=== PATIENT | female | born 1980 | race Two or more races ===

== ENCOUNTER 2019-10-24 16:07 | Emergency (ER) | payer MEDICAID ==
[~2019-10-24] VITALS: Ht 152.4 cm; Wt 86.6 kg
[2019-10-24 16:36] LABS: Urine Bacteria NONE SEEN /hpf (None Seen); Urine Blood Negative /uL (Negative); Urine Mucus FEW (None Seen); Urine Specific Gravity 1.029 (1.001-1.035); Urine WBC <1 /hpf (0 - 5)
[2019-10-24 16:48] LABS: Basophils # (auto) 0 uL; Basophils % (auto) 0.5 % (0.0-2.0); Eosinophils # (auto) 0 uL; Eosinophils % (auto) 0.8 % (0.0-7.0); Hematocrit 43.1 % (36.0-46.0); Hemoglobin 14.9 g/dL (12.2-16.2); Lymphocytes # (auto) 1.4 uL; Lymphocytes % (auto) 23.8 % (10.0-50.0); Mean Corpuscular Hemoglobin 28.9 pg (28.0-32.0); Mean Corpuscular Hgb Conc. 34.5 g/dL (32.0-36.0); Mean Corpuscular Volume 83.8 fL (80.0-100.0); Monocytes # (auto) 0.3 uL; Monocytes % (auto) 5.1 % (0.0-12.0); Neutrophils # (auto) 4.1 uL; Neutrophils % (auto) 69.8 % (37.0-80.0); Platelet Count (auto) 173 10^3/uL (140-450); Red Blood Cells 5.14 10^6/uL (4.0-5.20); Red Cell Distribution Width 13.9 % (11.8-14.3); White Blood Cell 5.9 10^3/uL (4.4-10.8)
[2019-10-24 17:06] LABS: Alanine Aminotransferase 128 U/L (13-56); Albumin 3.6 g/dL (3.4-5.0); Anion Gap 9 (5-15); Aspartate Aminotransferase 97 U/L (15-37); Blood Urea Nitrogen 13 mg/dL (7-18); Calcium 9.5 mg/dL (8.5-10.1); Carbon Dioxide 24 mmol/L (21-32); Chloride 104 mmol/L (98-107); GFR African American 130 mL/min; GFR Non-African American 107 mL/min; Glucose 219 mg/dL (74-106); Potassium 4.1 mmol/L (3.5-5.1); Sodium 137 mmol/L (136-145)
[2019-10-24 17:07] LABS: Alkaline Phosphatase 77 U/L (45-117); Bilirubin, Total 0.5 mg/dL (0.2-1.0)
[2019-10-24 18:26] VITALS: BP 127/79
[2019-10-24] MEDS ORDERED: SODIUM CHLORIDE 0.9% 500 ML IV ONE (19:00)
[2019-10-24] MEDS ORDERED: ONDANSETRON HCL 4 MG/2 ML VIAL IV ONE (19:00)
[2019-10-24] MEDS ORDERED: MORPHINE SULF INJ 2 MG/ML SYRINGE 1ML IV ONE (19:00)
== END 2019-10-24 19:46 | disposition home or self-care (01) ==
LOC: ER 16:07
DX: A08.4 Viral intestinal infection, unspecified (principal); K21.9 Gastro-esophageal reflux disease without esophagitis; K57.90 Diverticulosis of intestine, part unspecified, without perforation or abscess without bleeding; F17.210 Nicotine dependence, cigarettes, uncomplicated
CPT/HCPCS: 36415; 74176; 76705; 80053; 81001; 81025; 85025; 96361; 96374; 96375; 99284; J2270; J2405

== ENCOUNTER 2021-02-16 11:55 | Inpatient (IN) | payer MEDICAID ==
[~2021-02-16] VITALS: Ht 152.4 cm; Wt 80.8 kg
[2021-02-16] MEDS ORDERED: PANTOPRAZOLE 40 MG/10 ML VIAL INJ IV STA (12:05)
[2021-02-16] MEDS ORDERED: ONDANSETRON HCL 4 MG/2 ML VIAL IV ONE (12:15)
[2021-02-16] MEDS ORDERED: MORPHINE SULFATE 4 MG/ML SYR/VIAL IV ONE (12:15)
[2021-02-16] MEDS ORDERED: SODIUM CHLORIDE 0.9% 500 ML IVB ONE (12:15)
[2021-02-16 13:01] LABS: Basophils # (auto) 0 10 ^3/uL (0-0.2); Basophils % (auto) 0.2 % (0.0-2.0); Eosinophils # (auto) 0.1 10 ^3/uL (0-0.8); Eosinophils % (auto) 0.6 % (0.0-7.0); Hematocrit 40.6 % (36.0-46.0); Hemoglobin 13.8 g/dL (12.2-16.2); Lymphocytes # (auto) 1.2 10 ^3/uL (0.4-5.4); Lymphocytes % (auto) 13.1 % (10.0-50.0); Mean Corpuscular Hemoglobin 28.9 pg (28.0-32.0); Mean Corpuscular Hgb Conc. 33.9 g/dL (32.0-36.0); Mean Corpuscular Volume 85.4 fL (80.0-100.0); Monocytes # (auto) 0.4 10 ^3/uL (0-1.3); Monocytes % (auto) 3.9 % (0.0-12.0); Neutrophils # (auto) 7.5 10 ^3/uL (1.6-8.6); Neutrophils % (auto) 82.2 % (37.0-80.0); Nucleated Red Blood Cells % 0.1 %; Platelet Count (auto) 184 10^3/uL (140-450); Red Blood Cells 4.75 10^6/uL (4.0-5.20); Red Cell Distribution Width 13.2 % (11.8-14.3); White Blood Cell 9.1 10^3/uL (4.4-10.8)
[2021-02-16 13:24] LABS: Potassium 4.2 mmol/L (3.5-5.1)
[2021-02-16 13:35] LABS: Albumin 3.4 g/dL (3.4-5.0); BUN/Creatinine Ratio 21.3; Bilirubin, Total 0.4 mg/dL (0.2-1.0); Calcium 8.6 mg/dL (8.5-10.1); Total Protein 7.2 g/dL (6.4-8.2)
[2021-02-16] MEDS ORDERED: DEXTROSE (50%) 50ML SYRG IV PRN (14:45)
[2021-02-16] MEDS ORDERED: NITROGLYCERIN 0.4 MG SL TAB SL PRN (14:45)
[2021-02-16] MEDS ORDERED: HYDROmorphone HCL 2 MG/ML VL IV PRN (14:45)
[2021-02-16] MEDS ORDERED: MORPHINE SULF INJ 2 MG/ML SYRINGE 1ML IV PRN (14:45)
[2021-02-16] MEDS ORDERED: ONDANSETRON HCL 4 MG/2 ML VIAL IV PRN (14:45)
[2021-02-16] MEDS: HYDROmorphone HCL 2 MG/ML VL IV PRN ×2 (15:15→23:52)
[2021-02-16] MEDS: SODIUM CHLORIDE 0.9% 1,000 ML IV SCH (15:17)
[2021-02-16] MEDS: ACCU-CHEK COMFORT CURVE STRIP VI SCH ×2 (17:05→23:05)
[2021-02-16] MEDS: InsuLIN REG 1unit/0.01ml Soln (100units/ml) SC SCH ×2 (17:07→23:58)
[2021-02-16 22:00] VITALS: BP 110/68
[2021-02-16] MEDS: PANTOPRAZOLE 40 MG TAB PO SCH (23:05)
[2021-02-17] MEDS: SODIUM CHLORIDE 0.9% 1,000 ML IV SCH ×2 (01:34→12:20)
[2021-02-17 05:00] VITALS: BP 85/55
[2021-02-17 06:08] VITALS: BP 99/66
[2021-02-17] MEDS: ACCU-CHEK COMFORT CURVE STRIP VI SCH ×3 (06:55→17:00)
[2021-02-17] MEDS: InsuLIN REG 1unit/0.01ml Soln (100units/ml) SC SCH ×3 (06:56→17:00)
[2021-02-17 06:59] LABS: INR 0.99 (0.9-1.15)
[2021-02-17 07:08] LABS: Urine Bacteria NONE SEEN /hpf (None Seen); Urine Blood Negative /uL (Negative); Urine Mucus FEW (None Seen); Urine Specific Gravity 1.014 (1.001-1.035); Urine WBC 5 /hpf (0 - 5)
[2021-02-17] MEDS ORDERED: LIDOCAINE VISCOUS 2% 15ML UD ONE (08:37)
[2021-02-17] MEDS ORDERED: diphenhdrAMINE HCL 50 MG/1 ML VL ONE (08:38)
[2021-02-17 09:00] VITALS: BP 113/66
[2021-02-17] MEDS: PANTOPRAZOLE 40 MG TAB PO SCH (10:00)
[2021-02-17] MEDS: MIDAZOLAM HCL 5 MG/ML-1ML VIAL ONE ×2 (11:45→11:48)
[2021-02-17] MEDS: fentaNYL CITRATE 100 MCG/2 ML VL ONE ×2 (11:45→11:48)
[2021-02-17 13:00] VITALS: BP 96/71
[2021-02-17] MEDS ORDERED: PANT40T PO ×2 (14:17→14:32)
[2021-02-17] MEDS ORDERED: SUCR1TAB22 PO ×2 (14:17→14:32)
[2021-02-17] MEDS ORDERED: METF-372 PO (14:24)
[2021-02-17 17:00] VITALS: BP 112/73
[2021-02-17] MEDS ORDERED: SUCRALFATE 1 GM/10 ML ORAL SUSP PO SCH (17:00)
== END 2021-02-17 18:55 | disposition home or self-care (01) | DRG 241 ==
LOC: ER 11:55 → OVERFLOW 11:56 → WEST WING 17:16
PROVIDERS: ADMIT Nurse Practitioner Acute Care; ATTEND Internal Medicine
PROC: 0DB68ZX Excision of Stomach, Via Natural or Artificial Opening Endoscopic, Diagnostic (ICD-10-PCS; principal; 2021-02-17 11:49)
DX: K25.9 Gastric ulcer, unspecified as acute or chronic, without hemorrhage or perforation (principal); K29.80 Duodenitis without bleeding; K29.70 Gastritis, unspecified, without bleeding; E11.9 Type 2 diabetes mellitus without complications; E66.9 Obesity, unspecified; Z72.0 Tobacco use; Z20.822 Contact with and (suspected) exposure to COVID-19; K76.0 Fatty (change of) liver, not elsewhere classified; Z79.84 Long term (current) use of oral hypoglycemic drugs; Z83.3 Family history of diabetes mellitus; Z91.19 Patient's noncompliance with other medical treatment and regimen; Z68.34 Body mass index [BMI] 34.0-34.9, adult
CPT/HCPCS: 36415; 74176; 76705; 78226; 80053; 81001; 81025; 82962; 83036; 83690; 84443; 85025; 85610; 85730; 87426; 96361; 96372; 96374; 96375; C9113; G0378; J1815; J2250; J2405

== ENCOUNTER 2021-05-28 15:21 | Emergency (ER) | payer MEDICAID ==
[~2021-05-28] VITALS: Ht 152.4 cm; Wt 81.6 kg
[~2021-05-28 15:21] MED LIST: METF-372 PO; PANT40T PO; SUCR1TAB22 PO
[2021-05-28 16:53] VITALS: BP 134/69
== END 2021-05-28 17:17 | disposition home or self-care (01) ==
LOC: ER 15:21
DX: G44.209 Tension-type headache, unspecified, not intractable (principal); R11.0 Nausea; E11.9 Type 2 diabetes mellitus without complications; Z87.891 Personal history of nicotine dependence
CPT/HCPCS: 70450

== ENCOUNTER 2021-10-11 10:31 | Emergency (ER) | payer MEDICAID ==
[~2021-10-11] VITALS: Ht 152.4 cm; Wt 80.3 kg
[2021-10-11 10:33] VITALS: BP 117/79
[2021-10-11 10:58] LABS: Urine Bacteria NONE SEEN /hpf (None Seen); Urine Blood Negative /uL (Negative); Urine Hyaline Cast FEW /lpf (0 - 2); Urine Mucus FEW (None Seen); Urine Specific Gravity 1.035 (1.001-1.035); Urine WBC 49 /hpf (0 - 5)
== END 2021-10-11 15:12 | disposition left against medical advice (07) ==
LOC: ER 10:31
DX: R10.2 Pelvic and perineal pain (principal); Z53.21 Procedure and treatment not carried out due to patient leaving prior to being seen by health care provider
CPT/HCPCS: 81001; 81025

== ENCOUNTER 2022-09-03 06:42 | Emergency (ER) | payer MEDICAID ==
[~2022-09-03] VITALS: Ht 152.4 cm; Wt 81.3 kg
[2022-09-03 07:37] VITALS: BP 122/79
[2022-09-03 07:44] LABS: Basophils # (auto) 0 10 ^3/uL (0-0.2); Eosinophils # (auto) 0.1 10 ^3/uL (0-0.8); Mean Corpuscular Volume 81.4 fL (80.0-100.0); Monocytes # (auto) 0.3 10 ^3/uL (0-1.3); Monocytes % (auto) 4.9 % (0.0-12.0); Neutrophils # (auto) 4.2 10 ^3/uL (1.6-8.6); White Blood Cell 6.6 10^3/uL (4.4-10.8)
[2022-09-03 07:45] LABS: Basophils % (auto) 0.4 % (0.0-2.0); Eosinophils % (auto) 1.8 % (0.0-7.0); Hematocrit 37.3 % (36.0-46.0); Hemoglobin 12.4 g/dL (12.2-16.2); Lymphocytes % (auto) 29.9 % (10.0-50.0); Mean Corpuscular Hgb Conc. 33.2 g/dL (32.0-36.0); Nucleated Red Blood Cells % 0.1 %; Red Blood Cells 4.58 10^6/uL (4.0-5.20); Red Cell Distribution Width 13.6 % (11.8-14.3)
[2022-09-03] MEDS ORDERED: KETOROLAC TROMETH 30 MG/ML 1ML VIAL IV ONE (07:45)
[2022-09-03 08:13] LABS: Albumin 3.3 g/dL (3.4-5.0); Calcium 8.4 mg/dL (8.5-10.1); Potassium 3.6 mmol/L (3.5-5.1)
[2022-09-03 08:16] LABS: BUN/Creatinine Ratio 18.6; Bilirubin, Total 0.2 mg/dL (0.2-1.0); Total Protein 6.9 g/dL (6.4-8.2)
[2022-09-03 08:19] LABS: Urine Bacteria NONE SEEN /hpf (None Seen); Urine Blood Negative /uL (Negative); Urine Specific Gravity 1.007 (1.001-1.035); Urine WBC 1 /hpf (0 - 5)
[2022-09-03] MEDS ORDERED: NITR-87 PO (11:56)
== END 2022-09-03 12:30 | disposition home or self-care (01) ==
LOC: ER 06:42
DX: N83.202 Unspecified ovarian cyst, left side (principal); E11.9 Type 2 diabetes mellitus without complications; F17.210 Nicotine dependence, cigarettes, uncomplicated; Z79.899 Other long term (current) drug therapy
CPT/HCPCS: 36415; 71045; 74176; 76830; 76856; 80053; 81001; 83690; 85025; 96374; 99285; J1885

== ENCOUNTER 2023-09-23 07:59 | Emergency (ER) | payer MEDICAID ==
[~2023-09-23] VITALS: Ht 152.4 cm; Wt 77.9 kg
[~2023-09-23 07:59] MED LIST changes: +NITR-87 PO
[2023-09-23 08:08] VITALS: BP 123/80; PULSE 93; RESP 18; TEMP 97.6; O2SAT 98
[2023-09-23 08:33] LABS: Basophils # (auto) 0 10 ^3/uL (0-0.2); Basophils % (auto) 0.5 % (0.0-2.0); Eosinophils # (auto) 0.1 10 ^3/uL (0-0.8); Eosinophils % (auto) 1.2 % (0.0-7.0); Hematocrit 43.6 % (36.0-46.0); Hemoglobin 14.8 g/dL (12.2-16.2); Lymphocytes # (auto) 2.5 10 ^3/uL (0.4-5.4); Lymphocytes % (auto) 28.6 % (10.0-50.0); Mean Corpuscular Hemoglobin 28.6 pg (28.0-32.0); Mean Corpuscular Volume 84.1 fL (80.0-100.0); Monocytes # (auto) 0.4 10 ^3/uL (0-1.3); Monocytes % (auto) 4.3 % (0.0-12.0); Neutrophils # (auto) 5.8 10 ^3/uL (1.6-8.6); Neutrophils % (auto) 65.4 % (37.0-80.0); Nucleated Red Blood Cells % 0.1 %; Red Blood Cells 5.18 10^6/uL (4.0-5.20); Red Cell Distribution Width 12.8 % (11.8-14.3); White Blood Cell 8.8 10^3/uL (4.4-10.8)
[2023-09-23 08:47] LABS: Urine Bacteria NONE SEEN /hpf (None Seen); Urine Blood Negative /uL (Negative); Urine Clarity Clear (Clear); Urine Color Yellow (Yellow); Urine Protein, UAD TRACE (Negative); Urine Urobilinogen Normal (Negative); Urine WBC 3 /hpf (0 - 5); Urine pH 6.5 (5.0-8.0)
[2023-09-23 09:05] LABS: Alanine Aminotransferase 35 U/L (7-40); Albumin 4.9 g/dL (3.2-4.8); Alkaline Phosphatase 90 U/L (46-116); Anion Gap 4 (5-15); Aspartate Aminotransferase 18 U/L (13-40); BUN/Creatinine Ratio 12.3 (10.0-20.0); Blood Urea Nitrogen 7 mg/dL (9-23); Calcium 9.7 mg/dL (8.7-10.4); Carbon Dioxide 24 mmol/L (20-30); Chloride 104 mmol/L (98-107); Glucose 290 mg/dL (74-106); Lipase 93 U/L (12-53); Potassium 3.7 mmol/L (3.5-5.1); Sodium 132 mmol/L (136-145)
[2023-09-23 09:06] LABS: Bilirubin, Total 0.4 mg/dL (0.2-1.0); Total Protein 7.9 g/dL (5.7-8.2)
[2023-09-23] MEDS ORDERED: ONDANSETRON ODT 4 MG TAB PO ONE (10:15)
[2023-09-23] MEDS ORDERED: KETOROLAC TROMETH 60MG/2ML VIAL IM ONE (10:15)
[2023-09-23] MEDS ORDERED: METO-281 PO (10:20)
[2023-09-23] MEDS ORDERED: TRAM50TA2 PO (10:20)
== END 2023-09-23 10:48 | disposition home or self-care (01) ==
LOC: ER 07:59
DX: K29.00 Acute gastritis without bleeding (principal); R74.8 Abnormal levels of other serum enzymes; R16.0 Hepatomegaly, not elsewhere classified; F41.9 Anxiety disorder, unspecified; E11.9 Type 2 diabetes mellitus without complications; F17.210 Nicotine dependence, cigarettes, uncomplicated; Z98.890 Other specified postprocedural states; Z79.899 Other long term (current) drug therapy
CPT/HCPCS: 36415; 76705; 80053; 81001; 81025; 83690; 85025; 96372; 99285; J1885; Q0162

== ENCOUNTER 2023-09-25 10:30 | Emergency (ER) | payer MEDICAID ==
[~2023-09-25] VITALS: Ht 152.4 cm; Wt 80.1 kg
[~2023-09-25 10:30] MED LIST changes: +METO-281 PO; +TRAM50TA2 PO
[2023-09-25] MEDS ORDERED: ONDANSETRON ODT 4 MG TAB PO ONE (11:00)
[2023-09-25] MEDS ORDERED: LIDOCAINE VISCOUS 2% 15ML UD PO ONE (11:00)
[2023-09-25] MEDS ORDERED: MAALOX PLUS or MAALOX 30 ML PO ONE (11:00)
[2023-09-25 11:17] LABS: Basophils # (auto) 0 10 ^3/uL (0-0.2); Basophils % (auto) 0.2 % (0.0-2.0); Eosinophils # (auto) 0.1 10 ^3/uL (0-0.8); Eosinophils % (auto) 1.6 % (0.0-7.0); Hematocrit 40.6 % (36.0-46.0); Hemoglobin 13.8 g/dL (12.2-16.2); Lymphocytes # (auto) 1.6 10 ^3/uL (0.4-5.4); Lymphocytes % (auto) 24.1 % (10.0-50.0); Mean Corpuscular Hemoglobin 28.9 pg (28.0-32.0); Mean Corpuscular Hgb Conc. 33.9 g/dL (32.0-36.0); Mean Corpuscular Volume 85.1 fL (80.0-100.0); Monocytes # (auto) 0.4 10 ^3/uL (0-1.3); Monocytes % (auto) 5.5 % (0.0-12.0); Neutrophils # (auto) 4.7 10 ^3/uL (1.6-8.6); Neutrophils % (auto) 68.6 % (37.0-80.0); Red Blood Cells 4.77 10^6/uL (4.0-5.20); Red Cell Distribution Width 12.9 % (11.8-14.3); White Blood Cell 6.8 10^3/uL (4.4-10.8)
[2023-09-25 11:45] LABS: Alanine Aminotransferase 30 U/L (7-40); Alkaline Phosphatase 73 U/L (46-116); Carbon Dioxide 28 mmol/L (20-30); Chloride 102 mmol/L (98-107)
[2023-09-25 11:46] LABS: Albumin 4.2 g/dL (3.2-4.8); Anion Gap 4 (5-15); Aspartate Aminotransferase 17 U/L (13-40); BUN/Creatinine Ratio 16.4 (10.0-20.0); Bilirubin, Total 0.5 mg/dL (0.2-1.0); Blood Urea Nitrogen 10 mg/dL (9-23); Glucose 332 mg/dL (74-106); Potassium 4.4 mmol/L (3.5-5.1); Sodium 134 mmol/L (136-145); Total Protein 6.7 g/dL (5.7-8.2)
[2023-09-25 11:57] LABS: Lipase 98 U/L (12-53)
[2023-09-25] MEDS ORDERED: DICY10CA PO (13:39)
[2023-09-25] MEDS ORDERED: PANT40TA2 PO (13:39)
[2023-09-25] MEDS ORDERED: ZOFR4T PO (13:39)
[2023-09-25 14:02] VITALS: BP 111/65; PULSE 75; RESP 18; TEMP 98; O2SAT 97
== END 2023-09-25 14:04 | disposition home or self-care (01) ==
LOC: ER 10:30
DX: E11.65 Type 2 diabetes mellitus with hyperglycemia (principal); F17.210 Nicotine dependence, cigarettes, uncomplicated
CPT/HCPCS: 36415; 71045; 74176; 80053; 82962; 83690; 84484; 85025; 99284; Q0162

== ENCOUNTER → 2023-11-30 03:43 | Emergency (ER) | payer MEDICAID ==
[~2023-11-30] VITALS: Ht 152.4 cm; Wt 79.6 kg
[~2023-11-30 03:43] MED LIST changes: +ACET500T58 PO; +ACETAMINOPHEN 325 MG TAB PO ONE; +AMOX875T4 PO; +DICY10CA PO; +PANT40TA2 PO; +ZOFR4T PO; +cefTRIAXone SOD 1,000 MG VL IM ONE
[2023-11-30 03:55] VITALS: BP 117/82; PULSE 97; RESP 16; O2SAT 98
== END | disposition home or self-care (01) ==
LOC: ER 03:43
DX: L03.012 Cellulitis of left finger (principal); E11.9 Type 2 diabetes mellitus without complications; F41.9 Anxiety disorder, unspecified
CPT/HCPCS: 73140; 96372; 99283; J0696

== ENCOUNTER 2024-07-25 13:40 | Inpatient (IN) | payer MEDICAID ==
[~2024-07-25] VITALS: Ht 152.4 cm; Wt 80.2 kg
[~2024-07-25 13:40] MED LIST changes: -ACETAMINOPHEN 325 MG TAB PO ONE; -SUCR1TAB22 PO; +SUCR1TAB31 PO; -cefTRIAXone SOD 1,000 MG VL IM ONE
[2024-07-25 14:30] LABS: Urine Bacteria None Seen /hpf (None Seen)
[2024-07-25 15:10] LABS: Urine Blood TRACE /uL (Negative); Urine Clarity Clear (Clear); Urine Color Light-Yellow (Yellow); Urine Protein, UAD Negative (Negative); Urine Specific Gravity 1.027 (1.001-1.035); Urine Urobilinogen Normal (Negative); Urine WBC 25 /hpf (0 - 5)
[2024-07-25 17:30] LABS: Basophils # (auto) 0.1 10 ^3/uL (0-0.2); Basophils % (auto) 0.4 % (0.0-2.0); Eosinophils # (auto) 0 10 ^3/uL (0-0.8); Eosinophils % (auto) 0.2 % (0.0-7.0); Hematocrit 42.6 % (36.0-46.0); Hemoglobin 14.7 g/dL (12.2-16.2); Lymphocytes # (auto) 0.7 10 ^3/uL (0.4-5.4); Lymphocytes % (auto) 4.2 % (10.0-50.0); Mean Corpuscular Hemoglobin 29.2 pg (28.0-32.0); Mean Corpuscular Hgb Conc. 34.4 g/dL (32.0-36.0); Mean Corpuscular Volume 84.9 fL (80.0-100.0); Monocytes # (auto) 0.6 10 ^3/uL (0-1.3); Monocytes % (auto) 3.5 % (0.0-12.0); Neutrophils # (auto) 15.1 10 ^3/uL (1.6-8.6); Neutrophils % (auto) 91.7 % (37.0-80.0); Platelet Count (auto) 162 10^3/uL (140-450); Red Blood Cells 5.02 10^6/uL (4.0-5.20); Red Cell Distribution Width 13.3 % (11.8-14.3); White Blood Cell 16.4 10^3/uL (4.4-10.8)
[2024-07-25 17:43] LABS: Alanine Aminotransferase 20 U/L (7-40); Albumin 4.5 g/dL (3.2-4.8); Alkaline Phosphatase 76 U/L (46-116); Anion Gap 6 (5-15); Aspartate Aminotransferase 15 U/L (13-40); BUN/Creatinine Ratio 13.6 (10.0-20.0); Blood Urea Nitrogen 9 mg/dL (9-23); Calcium 9.3 mg/dL (8.7-10.4); Carbon Dioxide 20 mmol/L (20-30); Chloride 105 mmol/L (98-107); Glucose 301 mg/dL (74-106); Lipase 61 U/L (12-53); Potassium 3.8 mmol/L (3.5-5.1); Sodium 131 mmol/L (136-145); Total Protein 7.4 g/dL (5.7-8.2)
[2024-07-25] MEDS: SODIUM CHLORIDE 0.9% 1,000 ML IVB ONE (20:21)
[2024-07-25] MEDS: PANTOPRAZOLE 40 MG/10 ML VIAL INJ IV ONE (20:21)
[2024-07-25] MEDS: ONDANSETRON HCL 4 MG/2 ML VIAL IV ONE (20:21)
[2024-07-25] MEDS: MORPHINE SULFATE 4 MG/ML SYR/VIAL IV ONE (20:23)
[2024-07-25] MEDS ORDERED: ONDANSETRON HCL 4 MG/2 ML VIAL IV PRN (21:30)
[2024-07-25] MEDS ORDERED: DEXTROSE (50%) 50ML SYRG IV PRN (21:30)
[2024-07-25] MEDS ORDERED: HYDROcodone-ACET 5/325MG TAB PO PRN (21:30)
[2024-07-25] MEDS ORDERED: HYDROmorphone HCL 2 MG/ML VL/or syr IV PRN (21:30)
[2024-07-25] MEDS ORDERED: DOCUSATE SOD 100 MG CAP PO PRN (21:30)
[2024-07-25] MEDS: cefTRIAXone 1GM/50ML D5W 50 ML IV SCH (21:51)
[2024-07-25] MEDS: SODIUM CHLOR 0.9% PF (SALINE LOCK) 10ML VIAL/SYR IV SCH (22:08)
[2024-07-25] MEDS: ACCU-CHEK COMFORT CURVE STRIP VI SCH (22:08)
[2024-07-25] MEDS: metroNIDAZOLE 500MG/100ML 100 ML IV SCH (22:13)
[2024-07-25] MEDS: LACTATED RINGER'S 1,000 ML IV ONE (22:14)
[2024-07-25] MEDS: InsuLIN REG 1unit/0.01ml Soln (100units/ml) SC SCH (22:24)
[2024-07-25] MEDS: SUCRALFATE 1 GM TAB PO SCH (22:30)
[2024-07-25 23:22] VITALS: O2SAT 96
[2024-07-26] VITALS (8 sets, daily range): BP systolic 102–148; BP diastolic 58–95; PULSE 80–107; RESP 16–20; TEMP 98.5–100; O2SAT 95–99
[2024-07-26] MEDS: ACETAMINOPHEN 325 MG TAB PO PRN (00:14)
[2024-07-26 04:58] LABS: Basophils # (auto) 0 10 ^3/uL (0-0.2); Basophils % (auto) 0.1 % (0.0-2.0); Eosinophils # (auto) 0 10 ^3/uL (0-0.8); Eosinophils % (auto) 0.1 % (0.0-7.0); Hematocrit 39.8 % (36.0-46.0); Hemoglobin 13.9 g/dL (12.2-16.2); Lymphocytes # (auto) 0.9 10 ^3/uL (0.4-5.4); Lymphocytes % (auto) 8.2 % (10.0-50.0); Mean Corpuscular Hemoglobin 29.8 pg (28.0-32.0); Mean Corpuscular Volume 85.2 fL (80.0-100.0); Monocytes # (auto) 0.5 10 ^3/uL (0-1.3); Monocytes % (auto) 4.6 % (0.0-12.0); Neutrophils # (auto) 9.3 10 ^3/uL (1.6-8.6); Platelet Count (auto) 152 10^3/uL (140-450); Red Blood Cells 4.67 10^6/uL (4.0-5.20); Red Cell Distribution Width 12.9 % (11.8-14.3); White Blood Cell 10.7 10^3/uL (4.4-10.8)
[2024-07-26 05:17] LABS: Alanine Aminotransferase 18 U/L (7-40); Albumin 4.3 g/dL (3.2-4.8); Alkaline Phosphatase 63 U/L (46-116); Anion Gap 6 (5-15); Aspartate Aminotransferase 12 U/L (13-40); BUN/Creatinine Ratio 14.3 (10.0-20.0); Bilirubin, Total 0.9 mg/dL (0.2-1.0); Blood Urea Nitrogen 8 mg/dL (9-23); Calcium 8.9 mg/dL (8.7-10.4); Carbon Dioxide 23 mmol/L (20-30); Chloride 105 mmol/L (98-107); Glucose 204 mg/dL (74-106); Potassium 3.5 mmol/L (3.5-5.1); Sodium 134 mmol/L (136-145); Total Protein 6.8 g/dL (5.7-8.2)
[2024-07-26] MEDS ORDERED: PANTOPRAZOLE 40 MG TAB PO SCH (10:00)
[2024-07-26] MEDS: ENOXAPARIN SOD 40 MG/0.4 ML SYRINGE SC SCH (11:09)
[2024-07-26] MEDS: SODIUM CHLORIDE 0.9% 1,000 ML IV SCH (12:45)
[2024-07-26] MEDS: PANTOPRAZOLE 40 MG/10 ML VIAL INJ IV SCH (14:30)
[2024-07-26 14:46] LABS: INR 1.1 (0.9-1.15); Partial Thromboplastin Time 27.6 SEC (24.5-34.5); Prothrombin Time 11.6 sec (9.3-11.8)
[2024-07-26] MEDS: MORPHINE SULFATE INJ 2 MG/ml SYRG IV PRN (17:15)
[2024-07-26] MEDS: MAGNESIUM CITRATE SOLUTION 300 ML BTL PO ONE (20:28)
[2024-07-27 01:00] VITALS: BP 113/37; PULSE 75; RESP 18; TEMP 98.8; O2SAT 95
[2024-07-27 05:00] VITALS: BP 114/69; PULSE 100; RESP 20; TEMP 98; O2SAT 97
[2024-07-27 07:02] LABS: Basophils # (auto) 0 10 ^3/uL (0-0.2); Basophils % (auto) 0.2 % (0.0-2.0); Eosinophils # (auto) 0 10 ^3/uL (0-0.8); Eosinophils % (auto) 0.1 % (0.0-7.0); Hematocrit 38.4 % (36.0-46.0); Hemoglobin 13.2 g/dL (12.2-16.2); Lymphocytes # (auto) 0.6 10 ^3/uL (0.4-5.4); Lymphocytes % (auto) 12.1 % (10.0-50.0); Mean Corpuscular Hemoglobin 29.3 pg (28.0-32.0); Mean Corpuscular Hgb Conc. 34.4 g/dL (32.0-36.0); Monocytes # (auto) 0.4 10 ^3/uL (0-1.3); Monocytes % (auto) 7.5 % (0.0-12.0); Neutrophils # (auto) 4.3 10 ^3/uL (1.6-8.6); Neutrophils % (auto) 80.1 % (37.0-80.0); Platelet Count (auto) 134 10^3/uL (140-450); Red Blood Cells 4.52 10^6/uL (4.0-5.20); White Blood Cell 5.4 10^3/uL (4.4-10.8)
[2024-07-27 07:23] LABS: Alanine Aminotransferase 20 U/L (7-40); Alkaline Phosphatase 60 U/L (46-116); Anion Gap 9 (5-15); Aspartate Aminotransferase 16 U/L (13-40); Bilirubin, Total 0.4 mg/dL (0.2-1.0); Calcium 8.8 mg/dL (8.7-10.4); Carbon Dioxide 19 mmol/L (20-30); Chloride 107 mmol/L (98-107); Glucose 163 mg/dL (74-106); Potassium 3.2 mmol/L (3.5-5.1); Sodium 135 mmol/L (136-145); Total Protein 6.5 g/dL (5.7-8.2)
[2024-07-27 07:27] LABS: BUN/Creatinine Ratio 10.4 (10.0-20.0); Blood Urea Nitrogen < 5 mg/dL (9-23)
[2024-07-27 07:30] VITALS: PULSE 90; RESP 17; O2SAT 97
[2024-07-27 09:15] VITALS: BP 100/63; PULSE 101; RESP 20; TEMP 99.2; O2SAT 97
[2024-07-27 13:39] VITALS: BP 99/65; PULSE 81; RESP 20; TEMP 98; O2SAT 98
[2024-07-27] MEDS: POTASSIUM EFFERVESENT TAB 25 MEQ PO ONE (15:11)
== END 2024-07-27 17:53 | disposition home or self-care (01) | DRG 720 ==
LOC: ER 13:40 → CENTRAL 21:35 → OVERFLOW 21:35 → CENTRAL 07-26 08:02
PROVIDERS: ADMIT Internal Medicine; ATTEND Nurse Practitioner Acute Care
DX: A41.9 Sepsis, unspecified organism (principal); K80.10 Calculus of gallbladder with chronic cholecystitis without obstruction; N30.00 Acute cystitis without hematuria; K59.00 Constipation, unspecified; E11.9 Type 2 diabetes mellitus without complications; E66.9 Obesity, unspecified; Z83.3 Family history of diabetes mellitus; Z79.4 Long term (current) use of insulin; Z79.899 Other long term (current) drug therapy; Z68.34 Body mass index [BMI] 34.0-34.9, adult
CPT/HCPCS: 36415; 71045; 74176; 76705; 78226; 80053; 81001; 82962; 83036; 83690; 84702; 85025; 85610; 85730; 87086; 99291; G0378; J1815; J2405; J2470; J3490